=== PATIENT | male | born 1990 | race Caucasian/White ===

== ENCOUNTER 2017-12-04 00:05 | Emergency (ER) | payer SELFPAY ==
[2017-12-04] MEDS: SULFAMETHOXAZOLE-TRIMETHOPRIM DS 800-160 MG TAB PO (00:44)
[2017-12-04] MEDS: CEPHALEXIN MONOHYDRATE 500 MG CAP PO (00:44)
== END 2017-12-04 01:02 | disposition home or self-care (01) ==
LOC: NEPD 00:05
DX: L03.211 Cellulitis of face (principal); Z72.0 Tobacco use
CPT/HCPCS: 99283